=== PATIENT | male | born 1990 ===

== ENCOUNTER 2018-02-22 11:37 | Emergency (ER) | payer OTHER ==
[2018-02-22 11:41] VITALS: BMI 27.9
[2018-02-22] MEDS ORDERED: Tdap Vaccine 0.5 ml Vial (10-64 yrs) IM ONE ×2 (12:02→12:41)
[2018-02-22] MEDS ORDERED: Lidocaine 1% w Epi 1:100,000 Inj INFIL STA (12:03)
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
[2018-02-22] MEDS ORDERED: Lidocaine 1% w Epi 1:100,000 Inj ONE (12:41)
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
[2018-02-22 14:12] VITALS: BP 125/80; PULSE 75; RESP 16; TEMP 97.9; O2SAT 100
== END 2018-02-22 14:13 | disposition home or self-care (01) ==
LOC: H.ER 11:37
DX: S09.90XA Unspecified injury of head, initial encounter (principal); S20.229A Contusion of unspecified back wall of thorax, initial encounter; Y04.2XXA Assault by strike against or bumped into by another person, initial encounter; Z23 Encounter for immunization

== ENCOUNTER 2018-03-05 10:39 | Emergency (ER) | payer OTHER ==
[2018-03-05 10:39] VITALS: BMI 27.9
--- NOTE | 2018-03-05 11:41 | ED PDOC ---
HPI: Wound Care - HPI Time Seen by Provider: 03/05/18 11:03 Chief Complaint (Nursing): Suture/Staple Removal Chief Complaint (Provider): STAPLE REMOVAL History Per: Patient (27 Y/O MALE HERE FOR STAPLE REMOVAL FOR LACERATION REPAIR DONE 11 DAYS AGO. DENIES ANY COMPLAINTS.) Past Medical History Reviewed: Historical Data, Nursing Documentation, Vital Signs Vital Signs: Last Vital Signs Temp 98.5 F 03/05/18 10:44 Pulse 47 L 03/05/18 10:44 Resp 18 03/05/18 10:44 BP 138/86 03/05/18 10:44 Pulse Ox 100 03/05/18 10:44 - Family History Family History: States: No Known Family Hx - Home Medications Home Medications: Ambulatory Orders Medication Instructions Recorded Ibuprofen [Motrin] 600 mg PO Q8 PRN #21 tab 02/22/18 - Allergies Allergies/Adverse Reactions: Allergies Allergy/AdvReac Type Severity Reaction Status Date / Time No Known Allergies Allergy Verified 02/22/18 11:48 Review of Systems ROS Statement: Except As Marked, All Systems Reviewed And Found Negative Physical Exam - Reviewed Nursing Documentation Reviewed: Yes Vital Signs Reviewed: Yes - Physical Exam Appears: Positive for: Well, Non-toxic, No Acute Distress Head Exam: Positive for: NORMAL INSPECTION, NORMOCEPHALIC. Negative for: ATRAUMATIC (WELL HEALING LACERATION STAPLE INTACT RIGHT PARIETAL REGION. NO SIGNS OF INFECTION.) Skin: Positive for: Normal Color, Warm, DRY Eye Exam: Positive for: EOMI, Normal appearance, PERRL ENT: Positive for: Normal ENT Inspection Neck: Positive for: Normal, Painless ROM Cardiovascular/Chest: Positive for: Regular Rate, Rhythm Respiratory: Positive for: CNT, Normal Breath Sounds Gastrointestinal/Abdominal: Positive for: Normal Exam, Soft Back: Positive for: Normal Inspection Extremity: Positive for: Normal ROM Neurologic/Psych: Positive for: Alert, Oriented - ECG O2 Sat by Pulse Oximetry: 100 - Progress ED Course And Treament: VERBAL CONSENT PRIOR TO PROCEDURE JOSELO REMOVED WITHOUT DIFFICULTY. Disposition - Clinical Impression Clinical Impression: Removal of staple - Patient ED Disposition Is Patient to be Admitted: No - Disposition Disposition: Routine/Home Disposition Time: 11:41 Condition: FAIR Instructions: Staple Removal
[2018-03-05 11:55] VITALS: BP 120/78; PULSE 52; RESP 19; TEMP 97.3; O2SAT 98
== END 2018-03-05 11:56 | disposition home or self-care (01) ==
LOC: H.ER 10:39
DX: Z48.02 Encounter for removal of sutures (principal)